=== PATIENT | male | born 1940 | race Caucasian/White ===

== ENCOUNTER 2022-01-04 13:37 | Emergency (ER) | payer OTHER ==
[~2022-01-04] VITALS: Ht 188 cm; Wt 108.9 kg
[2022-01-04 14:25] LABS: BASOPHILS ABSOLUTE AUTO 0.04 K/mm3 (0.00-0.23); BASOPHILS PERCENT AUTO 0 % (0-2); EOSINOPHILS ABSOLUTE AUTO 0.29 K/mm3 (0.00-0.68); EOSINOPHILS PERCENT AUTO 3 % (0-6); Hematocrit 41.7 % (37.0-53.0); Hemoglobin 13.8 g/dL (13.5-17.5); IMMATURE GRAN ABSOLUTE AUTO 0.04 K/mm3 (0.00-0.10); IMMATURE GRAN PERCENT AUTO 0 % (0-1); LYMPHOCYTES ABSOLUTE AUTO 2.32 K/mm3 (0.84-5.20); LYMPHOCYTES PERCENT AUTO 24 % (21-46); MONOCYTES ABSOLUTE AUTO 0.72 K/mm3 (0.16-1.47); MONOCYTES PERCENT AUTO 7 % (4-13); Mean Corpuscular HGB 30.3 pg (26.0-34.0); Mean Corpuscular HGB Conc 33.1 g/dL (31.5-36.5); Mean Corpuscular Volume 91 fL (80-100); NEUTROPHILS ABSOLUTE AUTO 6.31 K/mm3 (1.96-9.15); NEUTROPHILS PERCENT AUTO 65 % (41-73); Platelet Count 266 K/mm3 (150-400); RDW Coefficient Variation 12.9 % (11.7-14.2); RDW Standard Deviation 42.7 fL (35.1-46.3); Red Blood Cell Count 4.56 M/mm3 (4.30-5.90); White Blood Cell Count 9.72 K/mm3 (4.00-11.30)
[2022-01-04 14:44] LABS: Albumin, Blood 3.5 g/dL (3.4-5.0); Bilirubin, Total 0.8 mg/dL (0.1-1.0); Calcium, Blood 10.6 mg/dL (8.5-10.1); Creatinine, Blood 1.07 mg/dL (0.60-1.20); Globulin, Blood 3.6 g/dL (2.2-4.0); Potassium, Blood 4.7 mmol/L (3.5-5.5); Total Protein, Blood 7.1 g/dL (6.4-8.2)
[2022-01-04] MEDS ORDERED: ATOR40TA PO (18:27)
[2022-01-04] MEDS ORDERED: DABI150C (18:29)
[2022-01-04] MEDS ORDERED: NITR2.5ER (18:35)
== END 2022-01-04 19:55 | disposition home or self-care (01) ==
LOC: ER 13:37
PROVIDERS: Physician Assistant
DX: R07.89 Other chest pain (principal); I49.3 Ventricular premature depolarization; M54.12 Radiculopathy, cervical region; Z95.1 Presence of aortocoronary bypass graft; Z79.899 Other long term (current) drug therapy
CPT/HCPCS: 36415; 71045; 80053; 83690; 83880; 84484; 85025; 93005; 93010

== ENCOUNTER 2023-10-14 16:36 | Inpatient (IN) | payer OTHER ==
[~2023-10-14] VITALS: Ht 188 cm; Wt 119.0 kg
[~2023-10-14 16:36] MED LIST: ATOR40TA PO; DABI150C; FURO20 PO; Isosorbide Mono30 MG PO; NITR2.5ER
[2023-10-14] MEDS ORDERED: Amlodipine Besyl5 MG PO (17:04)
[2023-10-14] MEDS ORDERED: Isosorbide Mono30 MG PO (17:04)
[2023-10-14] MEDS ORDERED: ATOR20 PO (17:04)
[2023-10-14] MEDS ORDERED: ZESTRIL40 M1 PO (17:04)
[2023-10-14] MEDS ORDERED: METO25ER PO (17:05)
[2023-10-14] MEDS ORDERED: POTCHL20ER PO (17:05)
[2023-10-14] MEDS ORDERED: FURO40 PO (17:05)
[2023-10-14] MEDS ORDERED: DABI75 PO (17:05)
[2023-10-14 17:08] LABS: BASOPHILS ABSOLUTE AUTO 0.05 K/mm3 (0.00-0.23); BASOPHILS PERCENT AUTO 1 % (0-2); EOSINOPHILS ABSOLUTE AUTO 0.28 K/mm3 (0.00-0.68); EOSINOPHILS PERCENT AUTO 3 % (0-6); Hematocrit 22.9 % (37.0-53.0); Hemoglobin 7.1 g/dL (13.5-17.5); IMMATURE GRAN ABSOLUTE AUTO 0.03 K/mm3 (0.00-0.10); IMMATURE GRAN PERCENT AUTO 0 % (0-1); LYMPHOCYTES ABSOLUTE AUTO 1.32 K/mm3 (0.84-5.20); LYMPHOCYTES PERCENT AUTO 16 % (21-46); MONOCYTES ABSOLUTE AUTO 1.08 K/mm3 (0.16-1.47); MONOCYTES PERCENT AUTO 13 % (4-13); Mean Corpuscular HGB 27.7 pg (26.0-34.0); Mean Corpuscular Volume 90 fL (80-100); Mean Platelet Volume 11.3 fL (9.1-12.4); NEUTROPHILS ABSOLUTE AUTO 5.54 K/mm3 (1.96-9.15); NEUTROPHILS PERCENT AUTO 67 % (41-73); Platelet Count 219 K/mm3 (150-400); RDW Coefficient Variation 15.9 % (11.7-14.2); RDW Standard Deviation 51.9 fL (35.1-46.3); Red Blood Cell Count 2.56 M/mm3 (4.30-5.90)
[2023-10-14 17:33] LABS: Albumin, Blood 2.9 g/dL (3.4-5.0); Albumin/Globulin Ratio 0.8 (0.8-1.8); Bilirubin, Total 0.9 mg/dL (0.1-1.0); Bun/Creatinine Ratio 29.1 (12.0-20.0); Calcium, Blood 9.9 mg/dL (8.5-10.1); Creatinine, Blood 1.72 mg/dL (0.60-1.20); Globulin, Blood 3.5 g/dL (2.2-4.0); Potassium, Blood 5.3 mmol/L (3.5-5.5); Total Protein, Blood 6.4 g/dL (6.4-8.2)
[2023-10-14] MEDS ORDERED: Albuterol 2.5 MG/3 ML VIAL INH PRN (19:35)
[2023-10-14] MEDS ORDERED: Acetaminophen 325 MG TABLET PO PRN (19:40)
[2023-10-14] MEDS ORDERED: Ondansetron HCl 2 MG / ML 2ML Vial IV PRN (19:40)
[2023-10-14 20:00] LABS: Percent Saturation 7.2 % (20.0-50.0)
[2023-10-14] MEDS ORDERED: Pantoprazole Sodium 40 MG Injection IV ONE (20:00)
[2023-10-14] MEDS ORDERED: Albuterol 2.5 MG/3 ML VIAL INH ONE (20:00)
[2023-10-14] MEDS ORDERED: Furosemide 10 MG / ML 2ML Vial IV ONE (20:00)
[2023-10-14 21:26] VITALS: BP 105/59
[2023-10-14 21:38] LABS: Influenza A, PCR NEGATIVE (NEGATIVE); Influenza B, PCR NEGATIVE (NEGATIVE); Resp Syncytial Virus, PCR NEGATIVE (NEGATIVE); SARS-Cov-2 (COVID-19) PCR, MMC NEGATIVE (NEGATIVE)
[2023-10-14] MEDS ORDERED: NS 500 ML IV SCH (21:55)
[2023-10-14 22:07] LABS: Hematocrit 22.6 % (37.0-53.0)
[2023-10-14 22:20] VITALS: BP 99/48
[2023-10-14] MEDS ORDERED: DABI150C PO (22:22)
[2023-10-14 22:30] VITALS: BP 100/55
[2023-10-14 22:45] VITALS: BP 102/53
[2023-10-14 22:58] VITALS: BP 101/64
[2023-10-14 23:52] VITALS: BP 109/57
[2023-10-15] VITALS (17 sets, daily range): BP systolic 86–116; BP diastolic 42–97
--- NOTE | 2023-10-15 00:14 | NUR ---
UPDATE CALLED DR ARTEAGA D/T PT HR DROPPING TO 30'S FOR 10~ SECONDS. PT ASYMPTOMATIC. ORDERS TO MONITOR AT THIS TIME.
--- NOTE | 2023-10-15 01:34 | NUR ---
TRANSFUSION FLUSH CHANGED PT FROM BLOOD ADMIN TO FLUSH, IV STILL INTACT. UPON RE-ENTERING ROOM TO CHECK STATUS PT IV WAS NOTED TO HAVE PULLED OUT AND BLOOD IN TUBING LEAKED INTO BED.
--- NOTE | 2023-10-15 01:41 | NUR ---
TRANSFUSION WHILE CLEANING PT; INFILTRATION NOTED AT SITE. DEMARCATED W/ SHARPIE, PT DENIES PAIN AT SITE. EXTREMITY ELEVATED
[2023-10-15 03:09] LABS: Hematocrit 24.5 % (37.0-53.0); Hemoglobin 7.7 g/dL (13.5-17.5); Mean Corpuscular HGB 27.9 pg (26.0-34.0); Mean Corpuscular HGB Conc 31.4 g/dL (31.5-36.5); Mean Corpuscular Volume 89 fL (80-100); Mean Platelet Volume 11.3 fL (9.1-12.4); Platelet Count 216 K/mm3 (150-400); RDW Coefficient Variation 15.7 % (11.7-14.2); RDW Standard Deviation 50.4 fL (35.1-46.3); Red Blood Cell Count 2.76 M/mm3 (4.30-5.90); White Blood Cell Count 7.97 K/mm3 (4.00-11.30)
[2023-10-15 03:36] LABS: Calcium, Blood 9.8 mg/dL (8.5-10.1); Creatinine, Blood 1.86 mg/dL (0.60-1.20); Potassium, Blood 5.5 mmol/L (3.5-5.5)
--- NOTE | 2023-10-15 05:13 | NUR ---
SHIFT SUMMARY PT RESTED QUIETLY T/O NIGHT. DENIES CP, SOB, AND NAUSEA. STATES "I FEEL LIKE I COULD WALK OUT OF HERE". SAT AT BEDSIDE D/T IV BEING PULLED AND NEEDING TO CHANGE BEDSHEETS. DENIED DIZZINESS/LIGHTHEADEDNESS/SOB THAT PT STATED HE WAS EXPERIENCING WHEN SITTING/STANDING DURING ADMIT. HR INTERMITTENTLY DIPS DOWN TO 35~ UNSUSTAINED W/ PT ASYMPTOMATIC. MAP >65; SPO2 >92% ON 3LNC. IV INFILTRATION HAS NOT SPREAD PAST DEMARCATED LINE.
[2023-10-15] MEDS ORDERED: Pantoprazole Sodium 40 MG Injection IV SCH (06:00)
[2023-10-15 07:42] LABS: Hematocrit 26.5 % (37.0-53.0); Mean Corpuscular HGB 27.2 pg (26.0-34.0); Mean Corpuscular HGB Conc 30.2 g/dL (31.5-36.5); Mean Corpuscular Volume 90 fL (80-100); Mean Platelet Volume 11.6 fL (9.1-12.4); Platelet Count 212 K/mm3 (150-400); RDW Coefficient Variation 15.7 % (11.7-14.2); RDW Standard Deviation 51.2 fL (35.1-46.3); Red Blood Cell Count 2.94 M/mm3 (4.30-5.90); White Blood Cell Count 8.48 K/mm3 (4.00-11.30)
[2023-10-15 08:15] LABS: Albumin, Blood 2.9 g/dL (3.4-5.0); Albumin/Globulin Ratio 0.9 (0.8-1.8); Bilirubin, Total 1.5 mg/dL (0.1-1.0); Bun/Creatinine Ratio 29.9 (12.0-20.0); Calcium, Blood 9.9 mg/dL (8.5-10.1); Creatinine, Blood 1.77 mg/dL (0.60-1.20); Globulin, Blood 3.4 g/dL (2.2-4.0); Potassium, Blood 5.5 mmol/L (3.5-5.5); Total Protein, Blood 6.3 g/dL (6.4-8.2)
[2023-10-15] MEDS ORDERED: Furosemide 10 MG/ML 4ML Vial IV SCH (09:00)
[2023-10-15] MEDS ORDERED: Atorvastatin 10 MG Tab PO SCH (09:00)
[2023-10-15] MEDS ORDERED: Isosorbide Mononitrate 30 MG TABCR PO SCH (09:00)
--- NOTE | 2023-10-15 18:08 | NUR ---
SHIFT SUMMARY PT A&Ox4, CALLS AND COMMUNCIATES NEEDS APPROPRIATELY. BP SOFT WITH SBP 90's AT TIMES, ASYMPTOMATIC. AFIB w/ BBB AND PVCs, 50's, TOUCHING 30'S AT TIMES. DENIES CP/PRESSURE. SpO2> 92% 2L VIA NC, DENIES SOB. 1 ASSIST w/ FWW TO BATHROOM AND CHAIR. CONTINENT OF URINE AND BOWEL. NO OTHER EVENTS, WILL REPORT TO ONCOMING RN.
[2023-10-15 18:17] LABS: Hemoglobin 8.5 g/dL (13.5-17.5)
[2023-10-15] MEDS ORDERED: Docusate Sodium 100 MG Cap PO SCH (21:00)
[2023-10-16 03:46] VITALS: BP 104/66
[2023-10-16 03:50] LABS: Hematocrit 23.7 % (37.0-53.0); Hemoglobin 7.4 g/dL (13.5-17.5); Mean Corpuscular HGB 27.5 pg (26.0-34.0); Mean Corpuscular HGB Conc 31.2 g/dL (31.5-36.5); Mean Corpuscular Volume 88 fL (80-100); Platelet Count 220 K/mm3 (150-400); RDW Coefficient Variation 15.8 % (11.7-14.2); RDW Standard Deviation 50.6 fL (35.1-46.3); Red Blood Cell Count 2.69 M/mm3 (4.30-5.90); White Blood Cell Count 8.57 K/mm3 (4.00-11.30)
[2023-10-16 04:19] LABS: Albumin, Blood 2.8 g/dL (3.4-5.0); Albumin/Globulin Ratio 0.9 (0.8-1.8); Bilirubin, Total 1.3 mg/dL (0.1-1.0); Bun/Creatinine Ratio 33.1 (12.0-20.0); Calcium, Blood 9.5 mg/dL (8.5-10.1); Creatinine, Blood 1.63 mg/dL (0.60-1.20); Globulin, Blood 3.1 g/dL (2.2-4.0); Potassium, Blood 5.3 mmol/L (3.5-5.5); Total Protein, Blood 5.9 g/dL (6.4-8.2)
--- NOTE | 2023-10-16 06:23 | NUR ---
1915 Assumed care of pt, bedside report completed. Shift plan of care reviewed with pt and daughter at bedside, all questions answered. Pt able to sleep well this shift per report. Able to titrate O2 to off when awake. Continue continuous pulse oximetry to monitor. HR continues to be low but stable and improved per review from night supervisor prior. Other vital signs stable , pt has denied pain this shift. Please see full assessment for additional detials. No further complaints or concerns at this time, will conitnue to monitor.
[2023-10-16 09:01] LABS: BASOPHILS ABSOLUTE AUTO 0.04 K/mm3 (0.00-0.23); BASOPHILS PERCENT AUTO 1 % (0-2); EOSINOPHILS ABSOLUTE AUTO 0.28 K/mm3 (0.00-0.68); EOSINOPHILS PERCENT AUTO 4 % (0-6); Hematocrit 25.8 % (37.0-53.0); Hemoglobin 7.9 g/dL (13.5-17.5); IMMATURE GRAN ABSOLUTE AUTO 0.03 K/mm3 (0.00-0.10); IMMATURE GRAN PERCENT AUTO 0 % (0-1); LYMPHOCYTES ABSOLUTE AUTO 1.02 K/mm3 (0.84-5.20); LYMPHOCYTES PERCENT AUTO 13 % (21-46); MONOCYTES ABSOLUTE AUTO 0.77 K/mm3 (0.16-1.47); MONOCYTES PERCENT AUTO 10 % (4-13); Mean Corpuscular HGB 27.4 pg (26.0-34.0); Mean Corpuscular HGB Conc 30.6 g/dL (31.5-36.5); Mean Corpuscular Volume 90 fL (80-100); Mean Platelet Volume 11.5 fL (9.1-12.4); NEUTROPHILS ABSOLUTE AUTO 5.81 K/mm3 (1.96-9.15); NEUTROPHILS PERCENT AUTO 73 % (41-73); Platelet Count 226 K/mm3 (150-400); RDW Coefficient Variation 15.8 % (11.7-14.2); RDW Standard Deviation 50.5 fL (35.1-46.3); Red Blood Cell Count 2.88 M/mm3 (4.30-5.90); White Blood Cell Count 7.95 K/mm3 (4.00-11.30)
[2023-10-16 09:26] VITALS: BP 114/58
[2023-10-16] MEDS ORDERED: PANT20 PO (11:32)
--- NOTE | 2023-10-16 14:22 | NUR ---
DISCHARGE SUMMARY PT A&Ox4, CALLS AND COMMUNCIATES NEEDS APPROPRIATELY. BP STABLE, AFIB w/ BBB AND PVCs, 50-70's, TOUCHING 30'S AT TIMES. DENIES CP/PRESSURE. SpO2> 92% RA-2L VIA NC, DENIES SOB. 1 ASSIST w/ FWW TO BATHROOM AND CHAIR. CONTINENT OF URINE AND BOWEL. FAMILY AT BEDSIDE WHEN DISCHARGE INSTRUCTIONS WERE GIVEN. ALL PT BELONGINGS GATHERED AND SENT WITH FAMILY. PT TAKEN OUT VIA WHEELCHAIR AT APPROXIMATELY 1315.
== END 2023-10-16 13:15 | disposition home or self-care (01) | DRG 291 ==
LOC: ER 16:36 → PCU 19:36
PROVIDERS: Emergency Medicine; Family Medicine; Nurse Practitioner Acute Care; Registered Nurse; ADMIT Internal Medicine
PROC: 30233N1 Transfusion of Nonautologous Red Blood Cells into Peripheral Vein, Percutaneous Approach (ICD-10-PCS; principal; 2023-10-14)
DX: I11.0 Hypertensive heart disease with heart failure (principal); I50.23 Acute on chronic systolic (congestive) heart failure; J96.21 Acute and chronic respiratory failure with hypoxia; D62 Acute posthemorrhagic anemia; N17.9 Acute kidney failure, unspecified; K92.2 Gastrointestinal hemorrhage, unspecified; Z66 Do not resuscitate; J44.9 Chronic obstructive pulmonary disease, unspecified; I25.10 Atherosclerotic heart disease of native coronary artery without angina pectoris; I95.9 Hypotension, unspecified; G47.33 Obstructive sleep apnea (adult) (pediatric); I48.0 Paroxysmal atrial fibrillation; Z95.1 Presence of aortocoronary bypass graft; Z88.0 Allergy status to penicillin; Z88.8 Allergy status to other drugs, medicaments and biological substances; Z79.899 Other long term (current) drug therapy; Z79.01 Long term (current) use of anticoagulants; Z87.891 Personal history of nicotine dependence
CPT/HCPCS: 0241U; 36415; 36430; 71046; 80048; 80053; 82272; 82607; 82728; 82746; 83540; 83550; 83880; 84145; 84484; 85014; 85018; 85025; 85027; 86850; 86900; 86901; 86923; 93005; 93010; 94762; 99285-25; A9270; C8929; C9113; J1940; P9016; Q9957

== ENCOUNTER → 2024-01-07 | Outpatient (CLI) | payer OTHER ==
[~2024-01-07] MED LIST changes: +ATOR20 PO; +Amlodipine Besyl5 MG PO; +CARV3.125 PO; +DABI150C PO; +DABI75 PO; +FURO40 PO; +Lisinopril2.5 MG PO; +METO25ER PO; +PANT20 PO; +POTA10T PO; +POTCHL20ER PO; +SPIR25 PO; +ZESTRIL40 M1 PO
[2024-01-07 19:18] LABS: Hematocrit 36.8 % (37.0-53.0); Hemoglobin 11.6 g/dL (13.5-17.5); Mean Corpuscular HGB 27.2 pg (26.0-34.0); Mean Corpuscular HGB Conc 31.5 g/dL (31.5-36.5); Mean Corpuscular Volume 86 fL (80-100); Mean Platelet Volume 10.9 fL (9.1-12.4); Platelet Count 262 K/mm3 (150-400); RDW Coefficient Variation 18.2 % (11.7-14.2); RDW Standard Deviation 58.4 fL (35.1-46.3); Red Blood Cell Count 4.26 M/mm3 (4.30-5.90); White Blood Cell Count 7.75 K/mm3 (4.00-11.30)
== END | disposition home or self-care (01) ==
LOC: LAB SHORT 17:57 → LAB 17:57
PROVIDERS: Nurse Practitioner Family
DX: I11.0 Hypertensive heart disease with heart failure (principal); I50.9 Heart failure, unspecified; K92.2 Gastrointestinal hemorrhage, unspecified; D64.9 Anemia, unspecified
CPT/HCPCS: 85027

== ENCOUNTER → 2024-01-13 | Outpatient (CLI) | payer OTHER ==
[2024-01-13 19:22] LABS: Hematocrit 36.7 % (37.0-53.0); Hemoglobin 11.3 g/dL (13.5-17.5); Mean Corpuscular HGB 26.7 pg (26.0-34.0); Mean Corpuscular HGB Conc 30.8 g/dL (31.5-36.5); Mean Corpuscular Volume 87 fL (80-100); Mean Platelet Volume 11.2 fL (9.1-12.4); Platelet Count 223 K/mm3 (150-400); RDW Coefficient Variation 18.2 % (11.7-14.2); RDW Standard Deviation 57.7 fL (35.1-46.3); Red Blood Cell Count 4.23 M/mm3 (4.30-5.90); White Blood Cell Count 7.65 K/mm3 (4.00-11.30)
== END | disposition home or self-care (01) ==
LOC: LAB SHORT 17:47 → LAB 17:47
PROVIDERS: Nurse Practitioner Family
DX: I11.0 Hypertensive heart disease with heart failure (principal); I50.9 Heart failure, unspecified; K92.2 Gastrointestinal hemorrhage, unspecified
CPT/HCPCS: 85027

== ENCOUNTER → 2024-01-20 | Outpatient (CLI) | payer OTHER ==
[2024-01-20 19:04] LABS: Hematocrit 33.5 % (37.0-53.0); Hemoglobin 10.4 g/dL (13.5-17.5); Mean Corpuscular HGB 27.3 pg (26.0-34.0); Mean Corpuscular Volume 88 fL (80-100); Mean Platelet Volume 11.6 fL (9.1-12.4); Platelet Count 178 K/mm3 (150-400); RDW Coefficient Variation 18.2 % (11.7-14.2); RDW Standard Deviation 58.9 fL (35.1-46.3); Red Blood Cell Count 3.81 M/mm3 (4.30-5.90); White Blood Cell Count 7.77 K/mm3 (4.00-11.30)
== END ==
LOC: LAB SHORT 17:55 → LAB 17:55
PROVIDERS: Nurse Practitioner Family
DX: K92.2 Gastrointestinal hemorrhage, unspecified (principal)
CPT/HCPCS: 85027

== ENCOUNTER → 2024-01-27 | Outpatient (CLI) | payer OTHER ==
[2024-01-27 13:24] LABS: Hematocrit 33.5 % (37.0-53.0); Hemoglobin 10.5 g/dL (13.5-17.5); Mean Corpuscular HGB 27.3 pg (26.0-34.0); Mean Corpuscular HGB Conc 31.3 g/dL (31.5-36.5); Mean Corpuscular Volume 87 fL (80-100); Mean Platelet Volume 11.8 fL (9.1-12.4); Platelet Count 175 K/mm3 (150-400); RDW Coefficient Variation 18.2 % (11.7-14.2); Red Blood Cell Count 3.84 M/mm3 (4.30-5.90); White Blood Cell Count 7.07 K/mm3 (4.00-11.30)
[2024-01-27 14:21] LABS: Bun/Creatinine Ratio 24.8 (12.0-20.0); Calcium, Blood 10.6 mg/dL (8.5-10.1); Creatinine, Blood 1.13 mg/dL (0.60-1.20); Potassium, Blood 4.5 mmol/L (3.5-5.5)
== END ==
LOC: LAB 12:15 → LAB SHORT 12:15
PROVIDERS: Internal Medicine Cardiovascular Disease
DX: I48.0 Paroxysmal atrial fibrillation (principal); I25.10 Atherosclerotic heart disease of native coronary artery without angina pectoris; I10 Essential (primary) hypertension
CPT/HCPCS: 80048; 85027

== ENCOUNTER → 2024-02-03 | Outpatient (CLI) | payer OTHER ==
[2024-02-03 19:29] LABS: Mean Corpuscular HGB 27.4 pg (26.0-34.0); Mean Corpuscular HGB Conc 31.3 g/dL (31.5-36.5); Mean Corpuscular Volume 88 fL (80-100); Platelet Count 184 K/mm3 (150-400); RDW Coefficient Variation 17.4 % (11.7-14.2); RDW Standard Deviation 56.5 fL (35.1-46.3); Red Blood Cell Count 3.65 M/mm3 (4.30-5.90); White Blood Cell Count 8.03 K/mm3 (4.00-11.30)
[2024-02-03 19:37] LABS: Bun/Creatinine Ratio 25.2 (12.0-20.0); Calcium, Blood 10.6 mg/dL (8.5-10.1); Creatinine, Blood 1.31 mg/dL (0.60-1.20); Potassium, Blood 4.8 mmol/L (3.5-5.5)
== END ==
LOC: LAB SHORT 18:06 → LAB 18:06
PROVIDERS: Internal Medicine Cardiovascular Disease
DX: I48.0 Paroxysmal atrial fibrillation (principal); I25.10 Atherosclerotic heart disease of native coronary artery without angina pectoris; I10 Essential (primary) hypertension
CPT/HCPCS: 80048; 85027

== ENCOUNTER → 2024-02-10 | Outpatient (CLI) | payer OTHER ==
[2024-02-10 14:25] LABS: Hematocrit 31.7 % (37.0-53.0); Hemoglobin 9.9 g/dL (13.5-17.5); Mean Corpuscular HGB 27.9 pg (26.0-34.0); Mean Corpuscular HGB Conc 31.2 g/dL (31.5-36.5); Mean Corpuscular Volume 89 fL (80-100); Mean Platelet Volume 11.5 fL (9.1-12.4); Platelet Count 188 K/mm3 (150-400); RDW Coefficient Variation 17.4 % (11.7-14.2); RDW Standard Deviation 56.9 fL (35.1-46.3); Red Blood Cell Count 3.55 M/mm3 (4.30-5.90); White Blood Cell Count 6.63 K/mm3 (4.00-11.30)
[2024-02-10 14:26] LABS: Bun/Creatinine Ratio 32.5 (12.0-20.0); Calcium, Blood 10.7 mg/dL (8.5-10.1); Creatinine, Blood 1.14 mg/dL (0.60-1.20); Potassium, Blood 4.6 mmol/L (3.5-5.5)
== END ==
LOC: LAB SHORT 12:32 → LAB 12:32
PROVIDERS: Nurse Practitioner Family
DX: K92.2 Gastrointestinal hemorrhage, unspecified (principal)
CPT/HCPCS: 80048; 85027

== ENCOUNTER → 2024-02-24 | Outpatient (CLI) | payer OTHER ==
[2024-02-24 17:43] LABS: Hematocrit 31.8 % (37.0-53.0); Hemoglobin 10.1 g/dL (13.5-17.5); Mean Corpuscular HGB 28.6 pg (26.0-34.0); Mean Corpuscular HGB Conc 31.8 g/dL (31.5-36.5); Mean Corpuscular Volume 90 fL (80-100); Mean Platelet Volume 11.2 fL (9.1-12.4); Platelet Count 211 K/mm3 (150-400); RDW Coefficient Variation 16.9 % (11.7-14.2); RDW Standard Deviation 55.5 fL (35.1-46.3); Red Blood Cell Count 3.53 M/mm3 (4.30-5.90)
[2024-02-24 19:21] LABS: Albumin, Blood 3.3 g/dL (3.4-5.0); Bilirubin, Total 0.7 mg/dL (0.1-1.0); Bun/Creatinine Ratio 25.2 (12.0-20.0); Calcium, Blood 10.1 mg/dL (8.5-10.1); Creatinine, Blood 1.11 mg/dL (0.60-1.20); Globulin, Blood 3.2 g/dL (2.2-4.0); Potassium, Blood 4.5 mmol/L (3.5-5.5); Total Protein, Blood 6.5 g/dL (6.4-8.2)
== END ==
LOC: LAB 15:10 → LAB SHORT 15:10
PROVIDERS: Nurse Practitioner Family
DX: K92.2 Gastrointestinal hemorrhage, unspecified (principal); I16.0 Hypertensive urgency; D64.9 Anemia, unspecified
CPT/HCPCS: 80053; 85027

== ENCOUNTER 2024-03-22 12:01 | Observation (INO) | payer OTHER ==
[~2024-03-22] VITALS: Ht 185.4 cm; Wt 104.8 kg
[2024-03-22] MEDS ORDERED: Pantoprazole Sodium 40 MG Injection IV ONE (14:55)
[2024-03-22 15:19] LABS: BASOPHILS ABSOLUTE AUTO 0.03 K/mm3 (0.00-0.23); BASOPHILS PERCENT AUTO 0 % (0-2); EOSINOPHILS ABSOLUTE AUTO 0.29 K/mm3 (0.00-0.68); EOSINOPHILS PERCENT AUTO 3 % (0-6); Hematocrit 26.6 % (37.0-53.0); Hemoglobin 8.4 g/dL (13.5-17.5); IMMATURE GRAN ABSOLUTE AUTO 0.04 K/mm3 (0.00-0.10); IMMATURE GRAN PERCENT AUTO 0 % (0-1); LYMPHOCYTES ABSOLUTE AUTO 1.43 K/mm3 (0.84-5.20); LYMPHOCYTES PERCENT AUTO 16 % (21-46); MONOCYTES ABSOLUTE AUTO 1.21 K/mm3 (0.16-1.47); MONOCYTES PERCENT AUTO 13 % (4-13); Mean Corpuscular HGB 28.7 pg (26.0-34.0); Mean Corpuscular HGB Conc 31.6 g/dL (31.5-36.5); Mean Corpuscular Volume 91 fL (80-100); Mean Platelet Volume 10.4 fL (9.1-12.4); NEUTROPHILS ABSOLUTE AUTO 6.12 K/mm3 (1.96-9.15); NEUTROPHILS PERCENT AUTO 67 % (41-73); Platelet Count 177 K/mm3 (150-400); RDW Coefficient Variation 15.7 % (11.7-14.2); RDW Standard Deviation 52.6 fL (35.1-46.3); Red Blood Cell Count 2.93 M/mm3 (4.30-5.90); White Blood Cell Count 9.12 K/mm3 (4.00-11.30)
[2024-03-22 15:36] LABS: International Normalized Ratio 1.1; Prothrombin Time Results 11.7 Sec (9.7-11.5)
[2024-03-22 15:38] LABS: Albumin, Blood 3.3 g/dL (3.4-5.0); Albumin/Globulin Ratio 0.9 (0.8-1.8); Bilirubin, Total 0.7 mg/dL (0.1-1.0); Bun/Creatinine Ratio 27.5 (12.0-20.0); Calcium, Blood 10.4 mg/dL (8.5-10.1); Creatinine, Blood 1.31 mg/dL (0.60-1.20); Globulin, Blood 3.8 g/dL (2.2-4.0); Potassium, Blood 4.8 mmol/L (3.5-5.5); Total Protein, Blood 7.1 g/dL (6.4-8.2)
[2024-03-22] MEDS ORDERED: Aspir 8181 MG PO (15:59)
[2024-03-22] MEDS ORDERED: CARV3.125 PO (15:59)
[2024-03-22] MEDS ORDERED: CLOP75 PO (15:59)
[2024-03-22] MEDS ORDERED: POTCHL20ER PO (15:59)
[2024-03-22] MEDS ORDERED: ALBU90OI INH (16:00)
[2024-03-22] MEDS ORDERED: Isosorbide Mono30 MG PO (16:00)
[2024-03-22] MEDS ORDERED: NITR.4SL SL (16:00)
[2024-03-22] MEDS ORDERED: AMLO5 (16:00)
[2024-03-22] MEDS ORDERED: STIOLTO RESPIMAT4 G2 INH (16:01)
[2024-03-22 17:12] LABS: Source, Urine Clean Catch
[2024-03-22 17:16] LABS: Appearance, Urine Clear (Clear); Bilirubin, Urine Neg (Neg); Blood, Urine Neg (Neg); Glucose Qualitative, Urine Neg (Neg); Ketones, Urine Neg (Neg); Leukocyte Esterase, Urine Neg (Neg); Nitrite, Urine Neg (Neg); Protein, Urine Neg (Neg); Urobilinogen, Urine NORM (Normal)
[2024-03-22 17:23] LABS: Color, Urine Pale Yellow (P-Yellow)
[2024-03-22] MEDS ORDERED: Ondansetron HCl 2 MG / ML 2ML Vial IV PRN (19:10)
[2024-03-22] MEDS ORDERED: FLU VACC TS2024-25(6MOS UP)/PF 45 MCG/0.5 ML SYRINGE IM ONE (19:10)
[2024-03-22] MEDS ORDERED: Albuterol 2.5 MG/3 ML VIAL INH PRN (19:20)
[2024-03-22] MEDS ORDERED: Ipratropium/Albuterol SulF 2.5-0.5MG/3 ML Amp INH SCH (19:45)
[2024-03-22] MEDS ORDERED: Furosemide 10 MG/ML 4ML Vial IV ONE (20:00)
[2024-03-22 21:42] VITALS: BP 138/53
[2024-03-23 04:33] VITALS: BP 123/51
--- NOTE | 2024-03-23 04:48 | NUR ---
ADMIT NOTE FOR 03/22/24 3080 REPORT WAS RECEIVED FROM THE ER. PT WAS BROUGHT DOWN ON THE GURNEY AND TRANSFERRED TO THE BED. PTS DAUGHTER WAS AT BEDSIDE WITH THE PT. PT AND DAUGHTER WAS ORIENTED TO THE ROOM AND STAFF. PT ALERT ORIENTED X 4 ABLE TO VERBALIZE NEEDS. USES THE URINAL. HE STATED THAT HE USES O2 AT HOME AT NIGHT SO I PUT HIM ON 2 L VIA NC. HE WAS PUT ON THE TELE AND HE WAS SINUS ISAI IN THE 40'S. RADHA PA IN REACH
--- NOTE | 2024-03-23 04:51 | NUR ---
SHIFT SUMMARY PT ALERT ORIENTED X 4 CALLS APPPROPRIATELY. AMBULATES WITH 1 PERSON SBA TO THE BATHROOM. USES URINAL AT BEDSIDE. REMAINS ON TELEMETRY AT SINUS ISAI AT A RATE OF 46. REMAINS ON A CONTINUOUS PULSE OX. REMAINS ON O2 AT 2L VIA NC. HE STATED THAT HE USES O2 AT NIGHT AND PRN. HE HAS A ORDER FOR A PALLIATIVE CARE CONSULT. HE LIVES AT HOME WITH HIS SPOUSE. HIS DAUGHTER STATED THAT THE [employer] SAL[employer]OCIATE SAID THAT HE NEEDS HIS COREG BUT SAID THAT WHEN HE WAS HERE FOR A GI BLEED IN [place] THAT THEY TOOK HIM OFF OF HIS COREG BECAUSE OF HIS LOW HEART RATES. HE HAS A WATCHMAN DEVICE ON. AFTER READING MD NOTES HE STATES THAT IN [place] WHEN PT WAS HERE CARDIOLOGY WAS CONSULTED DUE TO HIS BRADYCARDIA AND THEY STATED FOR HIM TO STOP THE COREG AND THAT HE PROBABLY HAS SINUS NODE DYSFUNCTION OR SICK SINUS SYNDROME. HES RESTING AT THIS TIME WITH CALL LIGHT IN REACH
[2024-03-23 05:34] LABS: Hemoglobin 7.3 g/dL (13.5-17.5); Mean Corpuscular HGB 27.9 pg (26.0-34.0); Mean Corpuscular HGB Conc 30.4 g/dL (31.5-36.5); Mean Corpuscular Volume 92 fL (80-100); Mean Platelet Volume 10.7 fL (9.1-12.4); Platelet Count 174 K/mm3 (150-400); RDW Coefficient Variation 15.9 % (11.7-14.2); Red Blood Cell Count 2.62 M/mm3 (4.30-5.90); White Blood Cell Count 7.72 K/mm3 (4.00-11.30)
[2024-03-23] MEDS ORDERED: Pantoprazole Sodium 20 MG Tab PO SCH (06:00)
[2024-03-23 06:12] LABS: Albumin/Globulin Ratio 0.9 (0.8-1.8); Bilirubin, Total 0.6 mg/dL (0.1-1.0); Bun/Creatinine Ratio 28.4 (12.0-20.0); Creatinine, Blood 1.34 mg/dL (0.60-1.20); Globulin, Blood 3.2 g/dL (2.2-4.0); Potassium, Blood 4.4 mmol/L (3.5-5.5); Total Protein, Blood 6.2 g/dL (6.4-8.2)
[2024-03-23 07:36] VITALS: BP 104/51
[2024-03-23 08:48] LABS: Percent Saturation 4.2 % (20.0-50.0)
[2024-03-23] MEDS ORDERED: AmLODIPine Besylate 5 MG Tab PO SCH (09:00)
[2024-03-23] MEDS ORDERED: Clopidogrel Bisulfate 75 MG Tab PO SCH (09:00)
[2024-03-23] MEDS ORDERED: Furosemide 40 MG Tab PO SCH (09:00)
[2024-03-23] MEDS ORDERED: Potassium Chloride 20 MEQ TabCR PO SCH (09:00)
[2024-03-23] MEDS ORDERED: Atorvastatin 10 MG Tab PO SCH (09:00)
[2024-03-23] MEDS ORDERED: Spironolactone 25 MG Tab PO SCH (09:00)
[2024-03-23] MEDS ORDERED: Lisinopril 5 MG Tab PO SCH (09:00)
[2024-03-23] MEDS ORDERED: Isosorbide Mononitrate 30 MG TABCR PO SCH (09:00)
--- NOTE | 2024-03-23 09:00 | NUR ---
pt states he is only here for a transfusion, and will be going home today, states the [facility] sent [facility]. a/ox4 cooperative with care, follows commands well, denies pain at this time, lungs are clear in upper nuñez, dim in bases, resp even and unlabored, no cough noted, hrirr, slow in the 40's, tele in place, see strip, no edema noted, ppp+1, cap refill<3 sec, vs stable, afebrile, piv to rac site is clear and patent, btx4, abd flat soft nontender, voids without diff, skin c/w/d, maew, cristal, call light in reach.
[2024-03-23] MEDS ORDERED: Iron Dextran 50 MG / ML 2ML Vial IV ONE (12:00)
[2024-03-23] MEDS ORDERED: Iron Dextran 975 MG in NS 250 ML IV ONE (13:00)
[2024-03-23] MEDS ORDERED: NS 250 ML IV PRN (13:10)
[2024-03-23 15:15] VITALS: BP 125/74
[2024-03-23] MEDS ORDERED: AMLO5 PO (15:42)
[2024-03-23] MEDS ORDERED: BISA5EC PO (15:49)
[2024-03-23 16:08] VITALS: BP 120/45
[2024-03-23] MEDS ORDERED: Ipratropium/Albuterol SulF 2.5-0.5MG/3 ML Amp INH SCH (16:30)
[2024-03-23 17:01] VITALS: BP 102/50
--- NOTE | 2024-03-23 17:13 | NUR ---
SUMMARY PT SITTING UP IN BED, RECIEVING A BLOOD TRANSFUSION, PLAN TO DC HOME AFTER, NO COMPLAINTS, VSS, WILL CONT TO MONITOR
[2024-03-23 19:24] LABS: Hematocrit 26.5 % (37.0-53.0); Hemoglobin 8.5 g/dL (13.5-17.5)
--- NOTE | 2024-03-23 19:32 | NUR ---
DISCHARGE NOTE PT ALERT ORIENTED X 4 CALLS APPROPRIATELY PTS DAUGHTER HERE TO TRANSPORT PT TO HOME FOR DISCHARGE. LABS WERE DONE ALL PTS BELONGINGS WERE SENT WITH THE PT PT WAS WHEELED OUT TO CAR IN W/C IV WAS REMOVED PT VERY HAPPY ABOUT HIS CARE AND ABOUT GOING HOME
[2024-03-24] MEDS ORDERED: Bisacodyl 5 MG TabEC PO SCH (09:00)
== END 2024-03-23 19:53 | disposition home or self-care (01) ==
LOC: ER 12:01 → MEDS 12:02 → ERHOLD 12:02 → MEDS 21:32
PROVIDERS: Emergency Medicine; Internal Medicine; Nurse Practitioner Acute Care; ADMIT Internal Medicine
DX: D50.9 Iron deficiency anemia, unspecified (principal); R55 Syncope and collapse; I11.0 Hypertensive heart disease with heart failure; I50.22 Chronic systolic (congestive) heart failure; E78.5 Hyperlipidemia, unspecified; I48.0 Paroxysmal atrial fibrillation; I25.10 Atherosclerotic heart disease of native coronary artery without angina pectoris; J44.9 Chronic obstructive pulmonary disease, unspecified; K64.8 Other hemorrhoids; G47.33 Obstructive sleep apnea (adult) (pediatric); Z91.030 Bee allergy status; Z88.0 Allergy status to penicillin; Z79.899 Other long term (current) drug therapy; Z91.038 Other insect allergy status; Z99.81 Dependence on supplemental oxygen; Z99.89 Dependence on other enabling machines and devices
CPT/HCPCS: 36415; 36430; 71045; 74177; 80053; 81003; 82272; 82728; 83540; 83550; 83880; 85014; 85018; 85025; 85027; 85610; 85730; 86850; 86900; 86901; 86923; 93005; 93010; 94640; 94664; 94760; 94762; 96374-59; 96375; 96376; 97116; 97161; 99285-25; A9270; G0378; J1750; J1940; J2470; J7050; P9016; Q9967

== ENCOUNTER 2024-11-26 14:37 | Emergency (ER) | payer OTHER ==
[~2024-11-26] VITALS: Ht 182.9 cm; Wt 108.9 kg
[~2024-11-26 14:37] MED LIST changes: +ALBU90OI INH; +AMLO5; +AMLO5 PO; +Aspir 8181 MG PO; +BISA5EC PO; +CLOP75 PO; +NITR.4SL SL; +STIOLTO RESPIMAT4 G2 INH
[2024-11-26] MEDS ORDERED: Ondansetron HCl 2 MG / ML 2ML Vial IV ONE (14:55)
[2024-11-26 14:59] LABS: BASOPHILS ABSOLUTE AUTO 0.03 K/mm3 (0.00-0.23); BASOPHILS PERCENT AUTO 0 % (0-2); EOSINOPHILS ABSOLUTE AUTO 0.22 K/mm3 (0.00-0.68); EOSINOPHILS PERCENT AUTO 2 % (0-6); Hematocrit 37.6 % (37.0-53.0); Hemoglobin 12.3 g/dL (13.5-17.5); IMMATURE GRAN ABSOLUTE AUTO 0.05 K/mm3 (0.00-0.10); IMMATURE GRAN PERCENT AUTO 1 % (0-1); LYMPHOCYTES ABSOLUTE AUTO 0.56 K/mm3 (0.84-5.20); LYMPHOCYTES PERCENT AUTO 5 % (21-46); MONOCYTES ABSOLUTE AUTO 0.63 K/mm3 (0.16-1.47); MONOCYTES PERCENT AUTO 6 % (4-13); Mean Corpuscular HGB Conc 32.7 g/dL (31.5-36.5); Mean Corpuscular Volume 95 fL (80-100); NEUTROPHILS ABSOLUTE AUTO 9.56 K/mm3 (1.96-9.15); NEUTROPHILS PERCENT AUTO 86 % (41-73); NRBC ABSOLUTE 0.00 K/mm3 (0.00-0.02); NRBC Auto 0.0 /100 WBC (0.0-0.2); Platelet Count 181 K/mm3 (150-400); RDW Coefficient Variation 13.9 % (11.7-14.2); RDW Standard Deviation 48.3 fL (35.1-46.3)
[2024-11-26] MEDS ORDERED: ASPI81CH PO (15:19)
[2024-11-26] MEDS ORDERED: IRON18 M1 PO (15:20)
[2024-11-26 15:25] LABS: Alanine Aminotransfer (ALT/SGP 32.0 U/L (12-78); Albumin, Blood 3.4 g/dL (3.4-5.0); Albumin/Globulin Ratio 0.9 (0.8-1.8); Anion Gap 9.0 mmol/L (3-11); Aspartate Aminotrans (AST/SGOT 32.0 U/L (12-37); Bilirubin, Total 1.2 mg/dL (0.1-1.0); Blood Urea Nitrogen 32.0 mg/dL (8-24); CO2, Blood 26.0 mmol/L (21-32); Calcium, Blood 9.8 mg/dL (8.5-10.1); Chloride, Blood 106.0 mmol/L (98-108); Creatinine, Blood 1.13 mg/dL (0.60-1.20); Globulin, Blood 3.6 g/dL (2.2-4.0); Glucose, Blood 122.0 mg/dL (70-99); Potassium, Blood 4.9 mmol/L (3.5-5.5); Sodium, Blood 136.0 mmol/L (136-145); Total Protein, Blood 7.0 g/dL (6.4-8.2)
[2024-11-26] MEDS ORDERED: ONDA4ODT MM (16:44)
[2024-11-26 17:35] VITALS: BP 132/61
== END 2024-11-26 17:35 | disposition home or self-care (01) ==
LOC: ER 14:37
PROVIDERS: Physician Assistant
DX: R11.2 Nausea with vomiting, unspecified (principal); E78.5 Hyperlipidemia, unspecified; I11.0 Hypertensive heart disease with heart failure; I50.9 Heart failure, unspecified; Z87.891 Personal history of nicotine dependence; Z79.82 Long term (current) use of aspirin; Z79.899 Other long term (current) drug therapy; Z91.030 Bee allergy status; Z88.0 Allergy status to penicillin; Z88.1 Allergy status to other antibiotic agents
CPT/HCPCS: 80053; 85025; 93005; 93010; 99284-25